=== PATIENT | male | born 1960 | race Caucasian/White ===

== ENCOUNTER 2018-07-17 19:40 | Emergency (ER) | payer MEDICAID ==
[2018-07-17] MEDS: DIAZEPAM 5 MG/ML SYG IV (19:59)
[2018-07-17 20:00] LABS: ADD MAN DIFF? NO
[2018-07-17] MEDS: SOD CHLORIDE 0.9% 1,000 ML IV ×2 (20:02→22:17)
[2018-07-17 20:15] LABS: BASOPHIL # 0.1 10^3/ul (0.0-0.1); BASOPHILS % 0.3 % (0.0-2.0); HEMATOCRIT 39.2 % (42.0-52.0); HEMOGLOBIN 13.4 g/dl (14.0-18.0); LYMPHOCYTES # 2.6 10^3/ul (0.8-2.9); LYMPHOCYTES % 15.4 % (15.0-51.0); MEAN CORPUSCULAR HEMOGLOBIN 29.3 pg (29.0-33.0); MEAN CORPUSCULAR HGB CONC 34.2 g/dl (32.0-37.0); MEAN CORPUSCULAR VOLUME 85.8 fl (82.0-101.0); MEAN PLATELET VOLUME 10.6 fl (7.4-10.4); MONOCYTE # 0.4 10^3/ul (0.3-0.9); MONOCYTES % 2.4 % (0.0-11.0); NEUTROPHIL # 13.7 10^3/ul (1.6-7.5); NEUTROPHILS % 81.4 % (39.0-77.0); PLATELET COUNT 387 10^3/UL (140-415); RED BLOOD COUNT 4.57 10^6/ul (4.70-6.10); RED CELL DISTRIBUTION WIDTH 13.8 % (11.5-14.5)
[2018-07-17 20:15] LABS: WHITE BLOOD COUNT 16.9 10^3/ul (4.8-10.8)
[2018-07-17 20:26] LABS: MAGNESIUM 1.4 mg/dl (1.7-2.5)
[2018-07-17 20:26] LABS: ALANINE AMINOTRANSFERASE 24 IU/L (13-69); ALBUMIN 3.8 g/dl (3.3-4.9); ALBUMIN/GLOBULIN RATIO 1.22; ALKALINE PHOSPHATASE 89 IU/L (42-121); ANION GAP 11 (5-13); ASPARTATE AMINO TRANSFERASE 25 IU/L (15-46); BILIRUBIN,INDIRECT 0.9 mg/dl (0-1.1); BILIRUBIN,TOTAL 0.9 mg/dl (0.2-1.3); BLOOD UREA NITROGEN 26 mg/dl (7-20); CALCIUM 9.5 mg/dl (8.4-10.2); CARBON DIOXIDE 23 mmol/L (21-31); CHLORIDE 99 mmol/L (97-110); CREATININE 1.53 mg/dl (0.61-1.24); Estimated GFR 47 mL/min (>60); GLUCOSE 325 mg/dl (70-220); SODIUM 133 mmol/L (135-144); TOTAL PROTEIN 6.9 g/dl (6.1-8.1)
[2018-07-17 20:27] LABS: POTASSIUM 5.4 mmol/L (3.5-5.1)
[2018-07-17 20:37] LABS: B-TYPE NATRIURETIC PEPTIDE 108 PG/ML (0-125); TROPONIN-I < 0.012 ng/ml (0.000-0.120)
[2018-07-17] MEDS: MAGNESIUM SULFATE 2 GM/50 ML 50 ML IVPB (22:17)
== END 2018-07-18 01:39 | disposition home or self-care (01) ==
LOC: E/R 07-18 01:39
DX: E86.0 Dehydration (principal); E61.2 Magnesium deficiency; R25.2 Cramp and spasm; I10 Essential (primary) hypertension
CPT/HCPCS: 36415; 71045; 74176; 80053; 83735; 83880; 84484; 85025; 93005; 96374; 96375; 99285-25